=== PATIENT | male | born 1955 | race African-American/Black ===

== ENCOUNTER 2018-05-23 10:56 | Day surgery (SDC) | payer OTHER ==
[~2018-05-23] VITALS: Ht 167.6 cm; Wt 79.5 kg
[2018-05-23] MEDS ORDERED: LISI5 (11:38)
--- NOTE | 2018-05-23 11:45 | NUR ---
History, Chart, Medications and Allergies reviewed before start of procedure. Patient confirms NPO status and agrees with scheduled surgery. Lungs clear T/O to Auscultation. Patient States Post-Procedure ride home has been arranged with his son-in-law, Franky.
--- NOTE | 2018-05-23 12:27 | NUR ---
05/23/18 1227 Estephania Gill PATIENT CONFIRMS NPO STATUS AND AGREES WITH SCHEDULED PROCEDURE. History, Chart, Medications and Allergies reviewed before start of procedure. MONITOR INTACT WITH CONTINUOUS PULSE OXIMETRY AND INTERMITTENT BP. O2 VIA N/C INTACT THROUGHOUT SEDATION/PROCEDURE. 3-LEAD EKG REVIEWED WITH PHYSICIAN PRIOR TO START OF PROCEDURE. PATIENT DETERMINED TO BE ASA APPROPRIATE FOR PROPOFOL SEDATION PRIOR TO START OF PROCEDURE BY DR. DALTON.
--- NOTE | 2018-05-23 14:23 | NUR ---
WRITTEN AND VERBAL D/C INSTUCTIONS GIVEN TO PT WITH STATED UNDERSTANDING.
--- NOTE | 2018-05-23 14:33 | NUR ---
"DAY SURGERY RN | DISCHARGE Discharge instructions given to patient by Estephania LANCASTER. VSS. A/O. Denies pain and nausea. No issues in stepdown. Tolerating PO fluids. Ride waiting at front entrance. Patient taken to front entrance via wheelchair by volunteer."
== END 2018-05-23 22:46 | disposition home or self-care (01) ==
LOC: ORSCMMR 10:56 → ORD 12:30 → ORSCMMR 22:46
PROVIDERS: Student in an Organized Health Care Education/Training Program
PROC: 0DJD8ZZ Inspection of Lower Intestinal Tract, Via Natural or Artificial Opening Endoscopic (ICD-10-PCS; principal; 2018-05-23 12:30)
DX: Z12.11 Encounter for screening for malignant neoplasm of colon (principal); I10 Essential (primary) hypertension; Z87.891 Personal history of nicotine dependence; Z79.899 Other long term (current) drug therapy
CPT/HCPCS: J7120

== ENCOUNTER 2023-07-03 06:50 | Emergency (ER) | payer OTHER ==
[~2023-07-03] VITALS: Ht 162.6 cm; Wt 72.6 kg
[~2023-07-03 06:50] MED LIST: LISI5
[2023-07-03] MEDS ORDERED: LISI20 PO (07:45)
[2023-07-03 08:06] LABS: BASOPHILS ABSOLUTE AUTO 0.03 K/mm3 (0.00-0.23); BASOPHILS PERCENT AUTO 1 % (0-2); EOSINOPHILS PERCENT AUTO 2 % (0-6); Hematocrit 39.2 % (37.0-53.0); Hemoglobin 13.6 g/dL (13.5-17.5); IMMATURE GRAN ABSOLUTE AUTO 0.01 K/mm3 (0.00-0.10); IMMATURE GRAN PERCENT AUTO 0 % (0-1); LYMPHOCYTES ABSOLUTE AUTO 1.64 K/mm3 (0.84-5.20); LYMPHOCYTES PERCENT AUTO 36 % (21-46); MONOCYTES ABSOLUTE AUTO 0.37 K/mm3 (0.16-1.47); MONOCYTES PERCENT AUTO 8 % (4-13); Mean Corpuscular HGB 30.6 pg (26.0-34.0); Mean Corpuscular HGB Conc 34.7 g/dL (31.5-36.5); Mean Corpuscular Volume 88 fL (80-100); Mean Platelet Volume 10.8 fL (9.1-12.4); NEUTROPHILS ABSOLUTE AUTO 2.44 K/mm3 (1.96-9.15); NEUTROPHILS PERCENT AUTO 53 % (41-73); Platelet Count 158 K/mm3 (150-400); RDW Coefficient Variation 11.9 % (11.7-14.2); RDW Standard Deviation 38.5 fL (35.1-46.3); Red Blood Cell Count 4.45 M/mm3 (4.30-5.90); White Blood Cell Count 4.59 K/mm3 (4.00-11.30)
[2023-07-03 08:25] LABS: Albumin/Globulin Ratio 1.2 (0.8-1.8); Bilirubin, Total 1.1 mg/dL (0.1-1.0); Bun/Creatinine Ratio 10.4 (12.0-20.0); Calcium, Blood 9.1 mg/dL (8.5-10.1); Creatinine, Blood 1.34 mg/dL (0.60-1.20); Globulin, Blood 3.3 g/dL (2.2-4.0); Potassium, Blood 4.4 mmol/L (3.5-5.5); Total Protein, Blood 7.3 g/dL (6.4-8.2)
[2023-07-03] MEDS ORDERED: Mag Hydrox/AL Hydrox/Simeth 30 ML UDC PO ONE (08:50)
[2023-07-03] MEDS ORDERED: Famotidine 10 MG/ML 2ML Vial IV ONE (08:50)
[2023-07-03] MEDS ORDERED: FentaNYL Citrate 50 MCG/ML 2 ML Injection IV ONE (10:10)
[2023-07-03 10:44] LABS: C-Reactive Protein, High Sens. 0.549 mg/dL (0.000-3.000)
[2023-07-03] MEDS ORDERED: Ketorolac Tromethamine 30mg Vial IV ONE (11:05)
[2023-07-03 12:00] VITALS: BP 155/88
== END 2023-07-03 12:54 | disposition home or self-care (01) ==
LOC: ER 06:50
PROVIDERS: Student in an Organized Health Care Education/Training Program
DX: R07.89 Other chest pain (principal); R07.2 Precordial pain; N28.9 Disorder of kidney and ureter, unspecified; I10 Essential (primary) hypertension; Z87.891 Personal history of nicotine dependence; Z91.040 Latex allergy status; Z79.899 Other long term (current) drug therapy
CPT/HCPCS: 71046; 80053; 83690; 84484; 85025; 86141; 93005; 93010; 96374; 96375; 99285-25; A9270; J1885; J3010

== ENCOUNTER 2023-07-03 18:11 | Emergency (ER) | payer OTHER ==
[~2023-07-03] VITALS: Ht 162.6 cm; Wt 72.6 kg
[~2023-07-03 18:11] MED LIST changes: +LISI20 PO
[2023-07-03] MEDS ORDERED: Ketorolac Tromethamine 15mg Vial IV ONE (19:05)
[2023-07-03 19:30] VITALS: BP 139/72
== END 2023-07-03 19:45 | disposition left against medical advice (07) ==
LOC: ER 18:11
DX: R07.2 Precordial pain (principal); Z91.040 Latex allergy status; Z79.899 Other long term (current) drug therapy; I10 Essential (primary) hypertension; Z87.891 Personal history of nicotine dependence
CPT/HCPCS: 84484; 93005; 93010; 96374; 99285-25; J1885